=== PATIENT | male | born 1950 | race Caucasian/White ===

== ENCOUNTER 2018-09-06 07:48 | Day surgery (SDC) | payer MEDICARE, BC ==
[2018-09-06] MEDS ORDERED: fentaNYL CITRATE/PF 100 MCG/2 ML INJ. ONE (08:48)
[2018-09-06] MEDS ORDERED: MIDAZOLAM HCL 2 MG/2 ML VIAL ONE ×2 (08:48→10:41)
[2018-09-06] MEDS ORDERED: GLYCOPYRROLATE 0.2 MG/1 ML 1 ML ONE (08:48)
[2018-09-06] MEDS ORDERED: methylPREDNISolone ACETATE 80 MG/ML VIAL IM ONE (08:48)
[2018-09-06] MEDS ORDERED: PROPOFOL 200 MG/20 ML VIAL IV ONE (08:48)
[2018-09-06] MEDS ORDERED: LIDOCAINE HCL 1% PF 300MG/30ML VIAL ONE (08:48)
[2018-09-06] MEDS ORDERED: 0.9 % SODIUM CHLORIDE PF 10 ML VIAL IJ ONE (08:48)
[2018-09-06] MEDS ORDERED: IBUPROFEN 200 MG TABLET PO ONE (11:26)
--- NOTE | 2018-09-14 09:56 | Operative Note ---
PROCEDURE: Cervical Radiofrequency Ablation (bilateral C4-C5, C5-C6 and C6-C7 medial branch levels) LOCATION OF PROCEDURE: [facility]; [place], [place] DATE OF PROCEDURE: 09/06/2018 SURGEON: Serafin Ritchie M.D. ASSISTANTS: None ANESTHESIA: MAC CHIEF COMPLAINT: Neck pain. HISTORY OF PRESENT ILLNESS: Mr. Mcclendon returns for the planned radiofrequency ablation of the above mentioned levels. I had previously performed diagnostic injections for this patient at the above mentioned levels at [facility] in [place], [place] with excellent results back in 07/2018. The patient arrives today with pain rated at about 8/10 in intensity. His pain has worsened over time. The patient, I believe, was previously on the schedule for this procedure but the case had been delayed as he needed cardiac clearance. The patient is ready for the procedure today and is anxious to have it performed as well. The patients demographics have been reviewed. The preprocedure paperwork has been reviewed as well as signed informed consent. The patient's condition and proposed procedure, risks and alternative interventions were discussed with the patient, including the risk of bleeding, infection and nerve damage, the potential for efficacy, non-efficacy and increased pain. The patient's questions were answered. The patient voiced understanding and desire to proceed with the procedure. The consent form was signed. PHYSICAL EXAM: On exam, the patient is awake and alert. Vital signs are stable. Heart is regular in rate and rhythm. Eyes PERRLA. Throat clear. Trachea midline. Lungs have good excursion. Abdomen is soft and nontender. The patient has posterior cervical tenderness with tenderness across the superior border of the trapezius muscle and into the scapular region. The patient also has complaints of grinding and tenderness with lateral flexion and rotation of his cervical spine. It should be noted that these symptoms had improved significantly following his previous medial branch blocks. PREOPERATIVE DIAGNOSES: 1. Cervical spondylosis without myelopathy. 2. Cervical facet arthropathy. 3. Cervicalgia. 4. Chronic pain syndrome. POSTOPERATIVE DIAGNOSES: 1. Cervical spondylosis without myelopathy. 2. Cervical facet arthropathy. 3. Cervicalgia. 4. Chronic pain syndrome. PLAN: We will proceed with the planned procedure as mentioned above. DESCRIPTION OF PROCEDURE: Preprocedure the patients name and date of were verified, confirmed planned procedure with patient, reviewed discharge instructions and a procedure consent was signed. IV was started per Anesthesia staff. Monitors were applied by Anesthesia staff. The patient was administered IV awake sedation/MAC to promote comfort per Anesthesia. NOTE: I have spoken to the nurse communications analyst at [facility] in [place], [place] regarding this patient. When I had performed the diagnostic injections, the patient appeared to have a very, very mild vasovagal reaction at the very end of the procedure without any significant or untoward events. It was recommended that they consider giving him some glycopyrrolate prior to the procedure. With the patient in the Operating Room, the patient was placed in the prone position and monitors were applied by the anesthesia and nursing staff. Procedural pause was taken to identify the correct patient, procedure and site to start the procedure. While the patient was lying in the prone position, the patient was prepped and draped in the usual sterile manner using ChloraPrep solution and fenestrated drapes. The levels were determined under fluoroscopic guidance and evaluated from C1 down to the T1 level. The regions for the bilateral C4-C5, C5-C6 and C6-C7 levels were identified with fluoroscopic guidance in the AP and oblique projections with the fluoroscope and marked with a sterile surgical marker. Local anesthesia was then performed by raising a skin wheal and intradermal infiltration of 0.5% lidocaine via a 1.5-inch 25-gauge needle. A 20-gauge curved 100 mm (10 mm active tip) [employer] radiofrequency Venom needle was introduced to the anatomic location of the medial branch at the lateral mass utilizing intermittent fluoroscopy. This was identified with both AP and oblique projections. Once the needles were placed and properly positioned, a solution containing 9 mL of 0.5% lidocaine MPF with 10 mg of dexamethasone was infiltrated at these 3 levels following negative aspiration. This solution was infiltrated with a total volume of 7 mL at that time for the 3 levels. A radiofrequency probe was then inserted into the Dennis Venom needle and motor stimulation up to 2 volts was performed to confirm no motor nerve contact at the ventral ramus at each level. Following this, radiofrequency ablation was performed at 80 degrees for 60 seconds. The patient had no untoward effects during the course of this procedure. At this point, the stylets were removed and an additional 1 mL of local anesthetic steroid solution was infiltrated through each needle. The needles were then cleared with an additional 0.5 mL of 0.5% lidocaine. The needles were then re-styletted and removed. The procedure was completed without complication and was tolerated well. The patient was monitored during and following the procedure. The patient was then brought to the Recovery Room for further evaluation. He had no untoward effects nor any evidence of vasovagal reaction at this time. The patients pain has improved 90-100% at this time. The patient was discharged home in stable condition with no untoward effects. SPECIMENS: None ESTIMATED BLOOD LOSS: None OPERATIVE COMPLICATIONS: None The patients preprocedure pain level was 8/10. The patients postprocedure pain level was 0-1/10. POST-PROCEDURE INSTRUCTIONS: The patient has been given post-procedure instructions with respect to limitation of activity, particularly today and over the next 24-48 hours. The patient has been instructed to followup with me in about 2 weeks time as well. Serafin Ritchie M.D. (dictated but not read) computer generated signature MAITE/margarita cc: Mian Yoon M.D. Fax: ADDENDUM: The patient indicated to me that he would like to inquire about having his lower back pain treated. When we initially saw the patient, I had stated to him that we would attempt to treat his cervical pain prior to treating his lumbar complaints. MAITE/margarita REDD
== END 2018-09-06 11:30 | disposition home or self-care (01) ==
LOC: OPSURG 07:48
PROVIDERS: ATTEND Pain Medicine Interventional Pain Medicine
DX: M47.812 Spondylosis without myelopathy or radiculopathy, cervical region (principal); G89.4 Chronic pain syndrome; M54.2 Cervicalgia; M54.5 Low back pain
CPT/HCPCS: 64635; 64636; J2250; J1040; J2001; J2704; J3010; J3490